=== PATIENT | female | born 1965 | race Caucasian/White ===

== ENCOUNTER 2016-07-03 19:17 | Emergency (ER) | payer OTHER ==
[~2016-07-03] VITALS: Ht 162.6 cm; Wt 89.5 kg
[~2016-07-03 19:17] MED LIST: ALPR0.5T8 PO; GABA-502 PO; IBUP200C PO; OLAN2.5T20 PO
[2016-07-03 19:45] VITALS: BP 116/81; PULSE 98; RESP 23; O2SAT 96
--- NOTE | 2016-07-03 19:48 | ED.REPORT ---
HPI-Psychiatric Illness Date of Service Jul 03, 2016 ED Provider: Dr. Matthews A 51 year old female presents to the ED via EMS with suicide attempt and pill ingestion. She took 14 Xanax pills before arrival. She reports that her daughter was murdered. Nursing Notes Stated Complaint: SUICIDAL Chief Complaint: Psychiatric Complaint Nursing Notes Reviewed: Yes Allergies: Coded Allergies: morphine (Verified Allergy, Severe, SWELLING OF TONGUE, 07/03/16) Scheduled Gabapentin (Gabapentin) 300 Mg Capsule 300 MG PO TID Olanzapine (Olanzapine) 2.5 Mg Tablet 2.5 MG PO DAILY Scheduled PRN Alprazolam (Alprazolam) 0.5 Mg Tablet 0.5 MG PO TID PRN PRN For Anxiety Ibuprofen (Ibuprofen) 200 Mg Capsule 200 MG PO TID PRN PRN For Pain General Time Seen by MD: 19:48 Chief Complaint Suicidal attempt Hx Obtained From: Patient, EMS Arrived By: Ambulance Onset Occurred: 1 - 4 hours ago (earlier this evening) Symptom Duration: Since onset Progression Since Onset: Unchanged Caused by: Ingestion Severity: Current: No pain currently Severity: Maximum: No pain Recent Healthcare: No recent doctor visit Similar Sx Previous: No Risk-Psychiatric Illness Suicide Risk Stratification RF Statements: Risk factors reviewed Past Medical History 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 Past Surgical History LEEP procedure 01/13/2016. Ambulatory Status Independent Review of Systems Constitutional: Denies: Chills, Fever Respiratory: Denies: Non-productive cough Cardiovascular: Denies: Chest pain Psychiatric: Reports: Suicidal ideation Complete sys rev & neg: except as marked. Musculoskeletal: Denies: Extremity pain Physical Exam Physical Exam Notes: Initial Vital Signs Vital Signs (First) Date Time Temp Pulse Resp B/P Pulse Ox O2 Delivery O2 Flow Rate FiO2 07/03/16 19:45 36.7 98 23 116/81 96 Room Air Initial VS: Reviewed General/Constitutional: Alert Alertness: Positive: Somnolent (Somnoletn but arousable) Somulent Neurologic: Oriented X3, Speech NL Abnormal Thinking / Perception: Positive: Suicidal, with plan (Admits to attempting suicide, related to Daughter's murder.) Head / Eyes: Atraumatic, Normocephalic, PERRL, EOMI ENT: Atraumatic, Airway patent Respiratory / Chest: Atraumatic, Breath sounds NL, Breath sounds = bilat, No respiratory distress, No rales, No rhonchi, No wheezing Cardiovascular: Heart rate NL, Regular rhythm, Heart sounds NL, No gallop, No murmurs, No rubs Abdomen: No guarding, No rebound Skin: Atraumatic, Warm Upper Extremity / MS: No swelling, No edema Interpretation & Diagnostics Lab Results Interpretation Result Diagram: 07/03/16 1950 07/03/16 1950 Test 07/03/16 19:50 07/03/16 20:00 07/03/16 20:05 White Blood Count 10.9th/mm3 (3.8-10.1) Red Blood Count 5.54mil/mm3 (3.90-5.20) Hemoglobin 16.8g/dL (12.0-15.6) Hematocrit 48.6% (35.0-46.0) Mean Corpuscular Volume 87.7fL (81-100) Mean Corpuscular Hemoglobin 30.3pg (27.0-35.0) Mean Corpuscular Hemoglobin Concent 34.6% (32.0-37.0) Red Cell Distribution Width 15.0% (12.3-15.4) Platelet Count 214bil/L (150-400) Neutrophils (%) (Auto) 42.3% (40-74) Lymphocytes (%) (Auto) 49.0% (14-46) Monocytes (%) (Auto) 6.5% (4-12) Eosinophils (%) (Auto) 1.7% (0-5) Basophils (%) (Auto) 0.3% (0-3) Sodium Level 137mEq/L (134-144) Potassium Level 4.0mEq/L (3.5-5.2) Chloride Level 96mEq/L (97-108) Carbon Dioxide Level 21mmol/L (18-29) Blood Urea Nitrogen 12mg/dL (6-24) Creatinine 0.67mg/dL (0.57-1.00) Estimat Glomerular Filtration Rate 134mL/min (>59) Glucose Level 139mg/dL (60-99) Calcium Level 10.1mg/dL (8.5-10.1) Total Bilirubin 0.3mg/dL (0.0-1.2) Aspartate Amino Transf (AST/SGOT) 25U/L (0-50) Alanine Aminotransferase (ALT/SGPT) 16U/L (0-32) Alkaline Phosphatase 111U/L (25-150) Total Protein 8.5g/dL (6.4-8.4) Albumin 5.2g/dL (3.4-5.0) Thyroid Stimulating Hormone (TSH) 4.000uIU/mL (0.450-4.500) Salicylates Level < 3.0ug/mL (30-250) Acetaminophen Level < 15.0ug/mL Rx (10-25) Hold Urine Received (Received) Hold Purple Top Tube Received (Received) Hold Blue Top Tube Received (Received) Hold Red Top Tube Received (Received) Hold [place] Top Tube Received (Received) Hold Vera Top Tube Received (Received) Re-Eval/Medical Decision Med Decision/Clinical Course 51-year-old female presents suicidal and intoxicated. She states she is very sad about the murder of her daughter. She ingested up to 7 mg of Xanax as well as alcohol tonight in attempts to commit suicide. Someone called EMS and she came in intoxicated with active suicidal ideations. She was also very tearful. Beyond that her exam was very benign. No evidence of self injury. She received IV fluids because her blood pressure drop. Diagnostics were reviewed. Salicylate and aspirin were negative. She smelled of alcoholic beverages so she will be observed in the emergency department as she is clinically sober. I expect that she will be able to sleep off the Xanax over about 12 hours. Currently we are boarding patients in the emergency department so we will continue to observe her down here at mental health evaluation in the morning. I just spoke with her at 2:30 AM. She still very tearful. Her speech is still mildly slurred. She is not yet clinically sober for an accurate mental health evaluation. Care will be endorsed to Dr. Gu and will have a mental health evaluation on her in the morning when she is sober. 0530 hrs.: Dr. Gu: This patient was initially evaluated by Dr. Matthews, see above. She is currently sobering pending further voluntary psychiatric evaluation. Her are willl be turned over at change of shift to Dr. Sánchez. Source of Hx: Old records, EMS Re-Evaluation/Progress #1: Time of Eval: 22:47 Re-Evaluation/Progress Note: Patient reports that they thought the pills they took before arrival at ED would kill her and she is surprised that they did not. Re-Evaluation/Progress #2: Time of Eval: 02:17 Re-Evaluation/Progress Note: Rechecked patient who has sobered up and is resting comftorably. Her speech is still mildly slurred, so she is not out of the xanax yet. Re-Evaluation/Progress #3: Time of Eval: 04:21 Patient Status: Condition improved Re-Evaluation/Progress Note: Patient rechecked by Dr. Gu after care was transferred at change of shift. She is sleeping with the door open, awaiting sobering for voluntary evaluation in the morning. Re-Evaluation/Progress #4: Time of Eval: 06:30 Re-Evaluation/Progress Note: No longer suicidal, will wait for social work to help secure close follow-up and mental health evaluation. Counseled Regarding: Diagnosis, Lab results, Need for follow-up, When/why to return to ED Discharge & Departure Shift Change Sign-Out Patient Care Transferred: Yes (Dr. Gu at 02:30) Discussed Complaint(s): Yes Laboratory Evaluation: Ordered, not yet done Response to Therapy: Improved Impression: Primary Impression: Acute situational disturbance Additional Impressions: Alcohol abuse Suicidal ideation Overdose Encounter type: initial encounter Injury intent: intentional self-harm Qualified Code: T50.902A - Poisoning by unspecified drugs, medicaments and biological substances, intentional self-harm, initial encounter Referrals: [facility] Care Transferred to: Dr. Gu Care Transferred at: 03:00 Scribe Attestation Portions of this note were transcribed by Wesley Yang. Dr. Cassie Heredia personally performed the history, physical exam and medical decision-making; I reviewed and confirmed the accuracy of the information in the transcribed note. Signed by: Alexander Henriquez, 07/04/2016, 0243. Portions of this note were transcribed by Chikis Muller. Dr. Brittanie Heredia, personally performed the history, physical exam, and medical decision-making; I reviewed and confirmed the accuracy of the information in the transcribed note. Signed by: Alexander Hare, 07/04/2016, 05:25 copies to: [facility] Moe Matthews DO Jul 03, 2016 19:48 Wesley Yang Jul 03, 2016 20:08 CHIKIS MULLER Jul 04, 2016 04:23 Charlie Gu MD Jul 04, 2016 05:33 Igor Sánchez DO Jul 04, 2016 12:38
[2016-07-03 20:04] LABS: BASOPHILS % (AUTO) 0.3 % (0-3); EOSINOPHILS % (AUTO) 1.7 % (0-5); MONOCYTES % (AUTO) 6.5 % (4-12); Mean Corpuscular Hemoglobin 30.3 pg (27.0-35.0); Mean Corpuscular Volume 87.7 fL (81-100); NEUTROPHILS % (AUTO) 42.3 % (40-74); Platelet Count 214 bil/L (150-400)
[2016-07-03 21:41] VITALS: BP 101/74; PULSE 101; RESP 32; O2SAT 95
[2016-07-03 22:50] VITALS: BP 94/60; PULSE 108; RESP 30; O2SAT 98
[2016-07-03 23:37] VITALS: BP 97/56; PULSE 85; RESP 28; O2SAT 95
[2016-07-03] MEDS: 0.9% Sodium Chloride 1,000 ML IV SCH (23:38)
[2016-07-04] MEDS: 0.9% Sodium Chloride 1,000 ML IV SCH (00:13)
[2016-07-04 01:45] VITALS: BP 133/97; PULSE 94; RESP 24; O2SAT 98
[2016-07-04 06:20] VITALS: BP 141/89; PULSE 107; RESP 24; O2SAT 97
[2016-07-04 12:27] VITALS: BP 149/96; PULSE 99; RESP 16; O2SAT 99
[2016-07-04 12:28] VITALS: BP 149/96; PULSE 99; RESP 16; O2SAT 99
== END 2016-07-04 12:31 | disposition home or self-care (01) ==
LOC: SED 19:17 → EDUNIT# 19:17 → EDBD 19:17 → SED 07-04 12:31
DX: F43.22 Adjustment disorder with anxiety (principal); F10.10 Alcohol abuse, uncomplicated; R45.851 Suicidal ideations; T42.4X2A Poisoning by benzodiazepines, intentional self-harm, initial encounter; X58.XXXA Exposure to other specified factors, initial encounter; Y93.89 Activity, other specified; Y92.9 Unspecified place or not applicable; Y99.8 Other external cause status; Z88.5 Allergy status to narcotic agent
CPT/HCPCS: 80053; 81025; 82075; 84443; 85025; 96360; 96361; 99284; J7030

== ENCOUNTER 2016-07-25 18:45 | Emergency (ER) | payer OTHER ==
[2016-07-25 18:52] VITALS: BP 132/93; PULSE 92; RESP 20; O2SAT 97
--- NOTE | 2016-07-25 21:27 | ED.REPORT ---
HPI-Overdose/Alcohol Toxicity Date of Service July 25, 2016 ED Provider: Charlie Gu MD Pt is a 51 y.o. female who presents to the ED via Police with ETOH intoxication. Pt reports using ETOH 2 hours prior to arrival. She states that she has a bed at [facility] and needs to be medically cleared and given a prescription before they will accept her. Pt reports that she has been drinking ETOH for about a month and says "once I start I can't stop". She reports a hx of alcohol related withdrawal. She also endorses SI with a plan to take pills. She states that she has had a previous suicide attempt and took 14 Xanax, due to this she reports no longer being prescribed her medication. Pt is currently seeing a counselor at [facility], she reports having an appointment every Saturday. Nursing Notes Stated Complaint: DETOX Chief Complaint: Substance Abuse Nursing Notes Reviewed: Yes Allergies: Coded Allergies: morphine (Verified Allergy, Severe, SWELLING OF TONGUE, 07/03/16) Scheduled Gabapentin (Gabapentin) 300 Mg Capsule 300 MG PO TID Olanzapine (Olanzapine) 2.5 Mg Tablet 2.5 MG PO DAILY Scheduled PRN Alprazolam (Alprazolam) 0.5 Mg Tablet 0.5 MG PO TID PRN PRN For Anxiety Ibuprofen (Ibuprofen) 200 Mg Capsule 200 MG PO TID PRN PRN For Pain General Time Seen by Provider: 21:25 Chief Complaint Intoxicated, alcohol Initial Psychiatric Assessment: Expresses suidical plan Hx Obtained From: Patient Arrived By: Police Onset Occurred: Just prior to arrival Severity: Current: No pain currently Severity: Maximum: No pain Risk-Overdose/Alcohol Tox )( Suicide Risk Stratification : Alcohol use: Previous attempt RF Statements: Risk factors reviewed Past Medical History 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 Past Surgical History LEEP procedure 01/13/2016. Reports: Appendectomy, Cholecystectomy Smoking History Current Every Day Smoker Social History Alcohol Drug Use: Xanax Ambulatory Status Independent Review of Systems ETOH intoxication Psychiatric: Reports: Depression, Suicidal ideation Complete sys rev & neg: except as marked. Physical Exam Initial Vital Signs Vital Signs (First) Date Time Temp Pulse Resp B/P Pulse Ox O2 Delivery O2 Flow Rate FiO2 07/25/16 18:52 36.4 92 20 132/93 97 Room Air Initial VS: Reviewed, Vital signs normal Head / Eyes: Atraumatic, Normocephalic Extremities: Vascular intact, Neuro intact Skin: Warm, Dry, No cyanosis Appearance / Presentation: Positive: Intoxicated (Smells of ETOH) Respiratory / Chest: Atraumatic, Breath sounds NL, Breath sounds = bilat, No respiratory distress Cardiovascular: Heart rate NL, Regular rhythm, Heart sounds NL, Peripheral circulation NL Abdomen: Atraumatic, Soft, Non-tender, No guarding, No rebound, No distention Organomegaly / Mass / Hernia: Negative: Hepatomegaly Neurologic: Oriented X3 Speech: Positive: Slurred (due to ETOH) Psychiatric: Not homicidal, No hallucinations Abnormal Thinking / Perception: Positive: Suicidal, with plan (Take pills) Interpretation & Diagnostics Lab Results Interpretation Result Diagram: 07/25/16215407/25/162154 Test 07/25/16 21:32 07/25/16 21:55 Hold Urine Received (Received) White Blood Count 6.3th/mm3 (3.8-10.1) Red Blood Count 4.95mil/mm3 (3.90-5.20) Hemoglobin 15.4g/dL (12.0-15.6) Hematocrit 44.0% (35.0-46.0) Mean Corpuscular Volume 88.9fL (81-100) Mean Corpuscular Hemoglobin 31.1pg (27.0-35.0) Mean Corpuscular Hemoglobin Concent 35.0% (32.0-37.0) Red Cell Distribution Width 14.8% (12.3-15.4) Platelet Count 236bil/L (150-400) Neutrophils (%) (Auto) 33.1% (40-74) Lymphocytes (%) (Auto) 56.4% (14-46) Monocytes (%) (Auto) 6.5% (4-12) Eosinophils (%) (Auto) 3.5% (0-5) Basophils (%) (Auto) 0.5% (0-3) Prothrombin Time 10.5sec (8.1-12.5) Prothromb Time International Ratio 0.98ratio Sodium Level 140mEq/L (134-144) Potassium Level 4.0mEq/L (3.5-5.2) Chloride Level 100mEq/L (97-108) Carbon Dioxide Level 21mmol/L (18-29) Blood Urea Nitrogen 10mg/dL (6-24) Creatinine 0.54mg/dL (0.57-1.00) Estimat Glomerular Filtration Rate 172mL/min (>59) Glucose Level 99mg/dL (60-99) Calcium Level 9.2mg/dL (8.5-10.1) Magnesium Level 1.9mg/dL (1.6-2.6) Total Bilirubin 0.2mg/dL (0.0-1.2) Aspartate Amino Transf (AST/SGOT) 25U/L (0-50) Alanine Aminotransferase (ALT/SGPT) 19U/L (0-32) Alkaline Phosphatase 95U/L (25-150) Troponin T 0.010ug/L (0.0-0.011) Total Protein 7.4g/dL (6.4-8.4) Albumin 4.7g/dL (3.4-5.0) Lipase 30U/L (13-60) Hold Vera Top Tube Received (Received) Salicylates Level 3.0ug/mL (30-250) Acetaminophen Level 15.0ug/mL Rx (10-25) Re-Eval/Medical Decision Med Decision/Clinical Course 51-year-old female who is intoxicated and suicidal. Screening labs were done to look for locations of her alcohol use. She was allowed to sober and her care is now being turned over at change of shift to Dr. Sánchez who will evaluate her current situation and make disposition. Source of Hx: Old records Re-Evaluation/Progress #1: Time of Eval: 21:26 Re-Evaluation/Progress Note: Contacted [facility] and they do not have a bed available for the pt at this time. Re-Evaluation/Progress #2: Time of Eval: 04:30 Re-Evaluation/Progress Note: Pt is resting comfortably Re-Evaluation/Progress #3: Time of Eval: 06:00 Re-Evaluation/Progress Note: Pt care transferred to Dr. Sánchez Counseled Regarding: Diagnosis, Lab results, Need for follow-up, When/why to return to ED Discharge & Departure Shift Change Sign-Out Patient Care Transferred: Yes (Dr. Sánchez) Discussed Complaint(s): Yes Laboratory Evaluation: Back, reviewed by me Impression: Primary Impression: Alcohol intoxication Additional Impression: Acute situational disturbance )( Condition at Discharge: No danger to self, No danger to others, No suicidal ideation, No homicidal ideation Disposition: Home Discharge Condition All VS Reviewed: Yes Condition: Improved Referrals: Val Pisano PA-C (PCP) Luis Carlos Moffett MD (Family) Alexander Attestation Portions of this note were transcribed by Sonia Harmon. I, Dr. Gu personally performed the history, physical exam and medical decision-making; I reviewed and confirmed the accuracy of the information in the transcribed note. Signed by: Alexander Arshad, 07/26/16 and 0604 copies to: Luis Carlos Moffett MD; Val Pisano PA-C, Howard L MD July 25, 2016 21:27 SONIA HARMON July 25, 2016 21:34
[2016-07-25 22:09] LABS: BASOPHILS % (AUTO) 0.5 % (0-3); EOSINOPHILS % (AUTO) 3.5 % (0-5); MONOCYTES % (AUTO) 6.5 % (4-12); Mean Corpuscular Hemoglobin 31.1 pg (27.0-35.0); Mean Corpuscular Volume 88.9 fL (81-100); NEUTROPHILS % (AUTO) 33.1 % (40-74); Platelet Count 236 bil/L (150-400)
[2016-07-25 22:20] LABS: INR 0.98 ratio
[2016-07-25 22:36] LABS: TROPONIN T 0.01 ug/L (0.0-0.011)
[2016-07-25 22:40] LABS: Magnesium 1.9 mg/dL (1.6-2.6)
[2016-07-26 00:03] VITALS: BP 108/68; PULSE 98; RESP 16; O2SAT 97
[2016-07-26 04:56] VITALS: BP 111/66; PULSE 102; RESP 16; O2SAT 96
[2016-07-26] MEDS ORDERED: LORazepam 2 mg Tablet PO ONE ×2 (05:15)
[2016-07-26] MEDS ORDERED: LORA-303 PO (09:58)
[2016-07-26] MEDS ORDERED: GABA-502 PO (09:58)
== END 2016-07-26 10:45 | disposition home or self-care (01) ==
LOC: SED 18:45
DX: F10.129 Alcohol abuse with intoxication, unspecified (principal); F43.0 Acute stress reaction; R45.851 Suicidal ideations; F17.200 Nicotine dependence, unspecified, uncomplicated; Z91.5 Personal history of self-harm; Z88.5 Allergy status to narcotic agent
CPT/HCPCS: 36415; 80053; 81002; 81025; 82075; 83690; 83735; 84484; 85025; 85610; 99284; G0480